=== PATIENT | female | born 1950 | race Hispanic/Latino ===

== ENCOUNTER 2016-10-18 13:47 | Outpatient (CLI) | payer BC ==
--- NOTE | 2016-10-18 16:23 | Mammography Report ---
BONE DEXA:10/18/16 14:15:00 CLINICAL: Postmenopausal. No comparison. TECHNIQUE: Two site bone DEXA performed on an Hologic scanner. FINDINGS: The average BMD of the lumbar spine L1-L4 is 0.919g/cm squared with a T-score of -1.2 and a Z-score of +0.5. The average BMD of the left hip is 0.877g/cm squared with a T-score of -0.5 and a Z-score of +0.6. IMPRESSION: 1. WHO classification: Osteopenia with increased fracture risk based on lumbar spine measurements. 2. WHO classification: Normal with average fracture risk based on left hip measurements. 3. The FRAX 10 year fracture probability for a major osteoporotic fracture is 7.3%. 4. The FRAX 10 year fracture probability for hip fracture is 0.4%. Note: FRAX version 3.01. Fracture probability calculated for an untreated patient. Fracture probability may be lower if the patient has received treatment. RECOMMENDATION: Clinical correlation and routine screening. DEFINITIONS: BMD = Bone Mineral Density T-score = BMD related to mean peak bone mass of young adult (mean expressed in Standard Deviation) Z-score = Age matched BMD expressed in SD World Health Organization (WHO) Diagnostic Criteria Normal T-score > -1 SD Osteopenia T-score between -1 and -2.4 SD Osteoporosis T-score -2.5 SD or below NOTE: BMD is not the only risk factor for fracture; also consider factors such as the patient's age, risk of falling, previous osteoporotic fracture, family history of osteoporotic fractures, current smoker, and low body weight. All treatment decisions require clinical judgment and consideration of individual patient factors, including patient preferences, comorbidities, previous drug use and risk factors not captured in the FRAX model (e.g. frailty, falls, vitamin D deficiency, increased bone turnover, interval significant decline in BMD). Fracture probability is calculated for an untreated patient. Fracture probability may be lower if the patient has received treatment. Z-scores are not calculated if >80 years of age.
== END 2016-10-18 13:48 | disposition home or self-care (01) ==
LOC: MAMMO 13:47
PROVIDERS: ATTEND Obstetrics & Gynecology Gynecology
DX: M85.88 Other specified disorders of bone density and structure, other site (principal); N95.1 Menopausal and female climacteric states
CPT/HCPCS: 77080

== ENCOUNTER 2017-09-27 10:50 | Outpatient (CLI) | payer BC ==
--- NOTE | 2017-09-27 12:23 | Mammography Report ---
Tomomammogram and 2-D mammogram: The 2-D mammogram demonstrates a heterogeneously dense fibroglandular pattern with no significant findings. The tomomammogram of the right breast is also unremarkable. The tomomammogram of the left breast demonstrates a 3 mm circumscribed nodule superiorly having no suspicious characteristics. No other findings. CAD used. Impression: No significant findings. Recommendation: Annual mammogram followup. BI-RADS CATEGORY: 2 = Benign ACR BI-RADS MAMMOGRAPHIC CODES: 0 = Needs additional imaging evaluation; 1 = Negative; 2 = Benign; 3 = Probably benign; 4 = Suspicious; 5 = Malignant; 6 = Known biopsy-proven malignancy COMMENT: 1. Dense breast tissue, i.e., adenosis, fibrocystic changes, etc., may obscure an underlying neoplasm. 2. Approximately 10% of cancers are not detected with mammography. 3. A negative mammography report should not delay biopsy if a clinically suspicious mass is present.
== END 2017-09-27 10:51 | disposition home or self-care (01) ==
LOC: MAMMO 10:50
PROVIDERS: ATTEND Obstetrics & Gynecology Gynecology
DX: Z12.31 Encounter for screening mammogram for malignant neoplasm of breast (principal)
CPT/HCPCS: 77063; 77067